=== PATIENT | female | born 1990 | race Caucasian/White ===

== ENCOUNTER 2018-01-22 09:43 | Emergency (ER) | payer MEDICAID ==
[~2018-01-22] VITALS: Ht 170.2 cm; Wt 92.5 kg
--- NOTE | 2018-01-22 09:50 | NUR ---
BIB , N/V SINCE 729 THIS AM. REPORTS OF GEN WEAKNESS. SEEN BY FOR EVAL. VSS. SAFETY AND COMFORT MEASURES PROVIDED. WILL MONITOR.
[2018-01-22] MEDS ORDERED: IV NS 0.9% 1,000 ML BAG IV ONE (10:00)
[2018-01-22] MEDS ORDERED: ONDANSETRON HCL/PF 4 MG/2 ML VIAL IVP ONE (10:00)
--- NOTE | 2018-01-22 10:03 | NUR ---
IV ACCESS STARTED. BLOOD DRAWN FOR LABS.
[2018-01-22] MEDS ORDERED: ONDANSETRON HCL/PF 4 MG/2 ML VIAL ONE ×3 (10:09→12:46)
--- NOTE | 2018-01-22 10:10 | NUR ---
PT UNABLE TO GIVE URINE SAMPLE AT THIS TIME.
[2018-01-22 10:17] LABS: BASOPHILS # (AUTO) 0.3 /CMM (0.0-0.2); BASOPHILS % (AUTO) 1.4 % (0.0-2.0); EOSINOPHILS % (AUTO) 0.4 % (0.0-6.0); HEMATOCRIT 44 % (33-45); LYMPHOCYTES # (AUTO) 2.2 /CMM (0.8-4.8); LYMPHOCYTES % (AUTO) 11.1 % (20.0-44.0); MEAN CORPUSCULAR HGB CONC 34 g/dl (31.0-36.0); MEAN CORPUSCULAR VOLUME 91 fL (82-100); MONOCYTES # (AUTO) 1.2 /CMM (0.1-1.30); MONOCYTES % (AUTO) 6.2 % (2.0-12.0); NEUTROPHILS # (AUTO) 16.1 /CMM (1.8-8.9); NEUTROPHILS % (AUTO) 80.9 % (43.0-81.0); PLATELET COUNT (AUTO) 259 /CMM (150-450); RDW COEFFICIENT OF VARIATION 13.3 (11.5-15.0); RED BLOOD CELL COUNT(AUTO) 4.86 MIL/uL (4.0-5.2); WHITE BLOOD COUNT (AUTO) 19.9 K/uL (4.3-11.0)
[2018-01-22 10:35] LABS: ALBUMIN 3.8 g/dL (3.4-5.0); BILIRUBIN,DIRECT 0.1 mg/dL (0.0-0.2); BILIRUBIN,TOTAL 0.2 mg/dL (0.2-1.0); CALCIUM, SERUM 8.5 mg/dL (8.5-10.1); CREATININE 0.9 mg/dL (0.6-1.3); POTASSIUM 3.7 mmol/L (3.5-5.1); TOTAL PROTEIN, SERUM 7.8 g/dL (6.4-8.2)
--- NOTE | 2018-01-22 10:40 | NUR ---
PT REFUSES TO GIVE URINE SAMPLE AT THIS TIME.
--- NOTE | 2018-01-22 11:15 | NUR ---
URINE SAMPLE OBTAINED, SENT.
[2018-01-22 11:31] LABS: APPEARANCE,URINE Clear (CLEAR); BILIRUBIN,URINE Negative (NEGATIVE); BLOOD, URINE Negative Ery/uL (NEGATIVE); COLOR,URINE Yellow (YELLOW); KETONES,URINE Negative (NEGATIVE); LEUKOCYTE ESTERASE ,URINE Trace (NEGATIVE); NITRITE, URINE Negative (NEGATIVE); PH,URINE 5.5 (5.0-8.0); PROTEIN,URINE Negative (NEGATIVE); UGLUCOSE Negative (NEGATIVE); UROBILINOGEN,URINE 0.2 EU/dL (0.2)
[2018-01-22 11:48] LABS: RBC,URINE 0-2 /HPF (0-2)
[2018-01-22 11:49] LABS: BACTERIA,URINE Few /HPF (None Seen); SQUAMOUS EPITHELIAL CELL,UR Many /HPF (None Seen)
--- NOTE | 2018-01-22 12:49 | NUR ---
PO FLUID CHALLENGE DONE- PT UNABLE TO TOLERATE. MD AWARE. MEDICATED ORDERED.
[2018-01-22] MEDS ORDERED: ONDANSETRON HCL/PF - ER 4 MG/2 ML VIAL IV ONE (13:00)
--- NOTE | 2018-01-22 13:30 | NUR ---
PT STILL C/O OF NOT FEELING WELL. WANTS TO STAY HERE FOR A LITTLE BIT.
--- NOTE | 2018-01-22 14:25 | NUR ---
IV removed. Catheter intact and site benign. Pressure and 4x4 applied to site. No bleeding noted.
--- NOTE | 2018-01-22 14:39 | NUR ---
Patient discharged to home in stable condition. Written and verbal after care instructions given. Patient verbalizes understanding of instruction.
[2018-01-22 14:40] VITALS: BP 132/77
== END 2018-01-22 14:42 | disposition home or self-care (01) ==
LOC: ER 09:48
DX: R11.2 Nausea with vomiting, unspecified (principal)
CPT/HCPCS: 36415; 80048-TC; 80076-TC; 80305; 81000-TC; 83690-TC; 84703-TC; 85025-TC; A4606; J2405; J7030; Z7610